=== PATIENT | female | born 1970 ===

== ENCOUNTER → 2018-10-09 21:20 | Outpatient (REF) | payer OTHER, SELFPAY ==
[2018-10-12 16:49] LABS: Sex Hormone Binding Globulin 66 nmol/L (17-124)
[2018-10-12 20:07] LABS: Estrogen 108.5 pg/mL
[2018-10-14 21:28] LABS: Testosterone Free 7.3 pg/mL (0.1-6.4); Testosterone Total 80 ng/dL (2-45)
== END ==
LOC: LAB 21:20
PROVIDERS: Visit Provider Naturopath
DX: N95.1 Menopausal and female climacteric states (principal); R68.82 Decreased libido; Z79.890 Hormone replacement therapy; R63.5 Abnormal weight gain
CPT/HCPCS: 82672; 84144; 84270; 84402; 84403